=== PATIENT | male | born 1990 | race Caucasian/White ===

== ENCOUNTER 2016-09-08 15:02 | Inpatient (IN) | payer OTHER ==
[~2016-09-08] VITALS: Ht 195.6 cm; Wt 86.2 kg
--- NOTE | 2016-09-08 15:52 | ED Lower Extremity ---
General Chief Complaint: Lower Extremity Stated Complaint: LEFT SIDE HIP INJURY NO FEELING Nursing Triage Note: States that approx 1400 was at work at [employer] and slipped and fell on left hip. Denies strinking any other body part- no LOC. States that he has numbness to left thigh from hip to foot. Able to move foot and toes but not ankle. C/O pain in lower hip /thigh area, no bruising, swelling or deformity noted. Was brought back to room in wheelchair and times 3 assist to transfer to bed Nursing Sepsis Screen: No Definite Risk Source: patient Exam Limitations: no limitations History of Present Illness Time seen by provider: 15:50 Initial Comments To ER with left lateral hip pain after a slip and fall at work at [employer] about one hour prior to arrival. States that he landed on the left hip. No other injury. He states he is unable to bear weight on his left leg. He has numbness and tingling down the left leg. Allergies and Home Medications Allergies Coded Allergies: No Known Drug Allergies (Unverified , 09/08/16) Constitutional: see HPI EENTM: see HPI Respiratory: no symptoms reported Cardiovascular: no symptoms reported Genitourinary: no symptoms reported Musculoskeletal: see HPI Skin: no symptoms reported Past Ouwqkea-Zpkbqx-Wafzqf Hx Patient Social History Alcohol Use: Denies Use Recreational Drug Use: No Smoking Status: Never a Smoker Recent Foreign Travel: No Contact w/Someone Who Travel: No Recent Infectious Disease Expo: No Recent Hopitalizations: No Immunizations Up To Date Tetanus Booster (TDap): More than 5yrs PED Vaccines UTD: Yes Seasonal Allergies Seasonal Allergies: No Surgeries Surgeries: Ear Surgery Blood Transfusions Adverse Reaction to a Blood Tr: No Physical Exam Vital Signs Vital Sign - Last 12Hours 09/08/16 15:25 Temp 97.1 Pulse 71 Resp 18 B/P (MAP) 118/64 Pulse Ox 99 Capillary Refill : Less Than 3 Seconds General Appearance: WD/WN, no apparent distress HEENT: PERRL/EOMI, normal ENT inspection Neck: non-tender, full range of motion Respiratory: normal breath sounds, no respiratory distress, no accessory muscle use Gastrointestinal: normal bowel sounds, non tender, soft Hips: bilateral hip non-tender, bilateral hip normal inspection, bilateral hip normal range of motion Legs: right leg pain, right leg other (there is no bruising erythema abrasion) Knees: bilateral knee non-tender, bilateral knee normal inspection, bilateral knee normal range of motion Ankles: bilateral ankle non-tender, bilateral ankle normal inspection, bilateral ankle normal range of motion Feet: bilateral foot non-tender, bilateral foot normal inspection, bilateral foot normal range of motion, left foot other (strong dorsalis pedis pulse bilateral feet) Neurologic/Psychiatric: alert, normal mood/affect, oriented x 3 Skin: normal color, warm/dry Progress/Results/Core Measures Results/Orders Lab Results Laboratory Tests Test 09/08/16 16:04 Range/Units White Blood Count 11.4 H 4.3-11.0 10^3/uL Red Blood Count 4.82 4.35-5.85 10^6/uL Hemoglobin 14.9 13.3-17.7 G/DL Hematocrit 44 40-54 % Mean Corpuscular Volume 92 80-99 FL Mean Corpuscular Hemoglobin 31 25-34 PG Mean Corpuscular Hemoglobin Concent 34 32-36 G/DL Red Cell Distribution Width 13.5 10.0-14.5 % Platelet Count 159 130-400 10^3/uL Mean Platelet Volume 10.8 H 7.4-10.4 FL Neutrophils (%) (Auto) 86 H 42-75 % Lymphocytes (%) (Auto) 7 L 12-44 % Monocytes (%) (Auto) 7 0-12 % Eosinophils (%) (Auto) 0 0-10 % Basophils (%) (Auto) 0 0-10 % Neutrophils # (Auto) 9.8 H 1.8-7.8 X 10^3 Lymphocytes # (Auto) 0.8 L 1.0-4.0 X 10^3 Monocytes # (Auto) 0.8 0.0-1.0 X 10^3 Eosinophils # (Auto) 0.0 0.0-0.3 10^3/uL Basophils # (Auto) 0.0 0.0-0.1 10^3/uL Neutrophils % (Manual) 81 % Lymphocytes % (Manual) 7 % Monocytes % (Manual) 5 % Eosinophils % (Manual) 0 % Basophils % (Manual) 0 % Metamyelocytes % 1 % Band Neutrophils 6 % Blood Morphology Comment NORMAL Sodium Level 137 135-145 MMOL/L Potassium Level 4.4 3.6-5.0 MMOL/L Chloride Level 104 98-107 MMOL/L Carbon Dioxide Level 22 21-32 MMOL/L Anion Gap 11 5-14 MMOL/L Blood Urea Nitrogen 25 H 7-18 MG/DL Creatinine 1.45 H 0.60-1.30 MG/DL Estimat Glomerular Filtration Rate 59 BUN/Creatinine Ratio 17 Glucose Level 105 70-105 MG/DL Calcium Level 9.8 8.5-10.1 MG/DL Total Bilirubin 1.1 H 0.1-1.0 MG/DL Aspartate Amino Transf (AST/SGOT) 47 H 5-34 U/L Alanine Aminotransferase (ALT/SGPT) 107 H 0-55 U/L Alkaline Phosphatase 42 40-136 U/L Total Protein 7.4 6.4-8.2 G/DL Albumin 4.7 H 3.2-4.5 G/DL My Orders Orders - JASE LEWIS APRN Hip, Left, 2 Views (09/08/16 15:40) Cbc With Automated Diff (09/08/16 16:01) Comprehensive Metabolic Panel (09/08/16 16:01) Chest 1 View, Ap/Pa Only (09/08/16 16:01) Pelvis (09/08/16 16:01) Fentanyl Injection (Sublimaze Injection (09/08/16 16:15) Manual Differential (09/08/16 16:04) Vitamin D 25-Hydroxy (09/08/16 16:18) Thyroid Stimulating Hormone (09/08/16 16:19) Free T4 (Free Thyroxine) (09/08/16 16:19) Hepatitis Panel Acute (09/08/16 16:37) Ns Iv 1000 Ml (Sodium Chloride 0.9%) (09/08/16 16:45) Ua Culture If Indicated (09/08/16 16:38) Drug Screen Stat (Urine) (09/08/16 16:38) Medications Given in ED Current Medications Medications Dose Ordered Sig/Nayely Route Start Time Stop Time Status Last Admin Dose Admin Fentanyl Citrate 75 mcg ONCE ONCE IVP 09/08/16 16:15 09/08/16 16:16 DC 09/08/16 16:12 75 MCG Vital Signs/I&O Vital Sign - Last 12Hours 09/08/16 15:25 Temp 97.1 Pulse 71 Resp 18 B/P (MAP) 118/64 Pulse Ox 99 Blood Pressure Mean: 82 Departure Communication Time/Spoke to Admitting Phy: 16:39 Communication Discussed the case with Dr. Tenorio. He plans to take this patient to surgery tonight at 630 p.m. Time/Spoke to Consulting Physi: 16:39 Communication/Consulting Notify Dr. Jarquin of consult for [facility] patient. Progress Notes 1646-I discussed the lab values with the patient. He states that he's not had any blood drawn for about 5 years. That's when he was residing in [place]. At that time he was told he did have some slightly elevated liver enzymes. At that time, he was mid male to female transgender treatment with estrogen and spironolactone. He only took those medications for 3 months and then quit and has not had any for 5 years. Impression Impression: Primary Impression: Hip fracture Additional Impressions: Elevated liver enzymes Acute renal insufficiency Disposition: ADMITTED INPATIENT Condition: Stable Decision to Admit Reason: Admit from ER (General) Decision to Admit/Date: Sep 08, 2016 Time/Decision to Admit Time: 16:48 Departure-Patient Inst. Referrals: ODESSA ASHLEY DO (PCP) Primary Care Physician DANISH SHAW (Family) Primary Care Physician JASE LEWIS APRN Sep 08, 2016 15:52
--- NOTE | 2016-09-08 16:11 | Diagnostic Imaging Report ---
Indication: Injury from a fall, left hip fracture Portable chest 4:12 PM Heart and mediastinum are normal. Lungs are clear. There are no effusions or pneumothoraces. Impression: Negative chest Dictated by: Dictated on workstation # [id number]
--- NOTE | 2016-09-08 16:13 | Diagnostic Imaging Report ---
AP and cross-table lateral views of the left hip. INDICATION: Fall. FINDINGS: There is a superiorly displaced intertrochanteric fracture with varus angulation. No subluxation or dislocation at the joint. No radiopaque foreign body. IMPRESSION: Superiorly displaced and angulated left intertrochanteric fracture. Dictated by: Dictated on workstation # [id number]
[2016-09-08 16:15] LABS: BASOPHILS % (AUTO) 0 % (0-10); EOSINOPHILS % (AUTO) 0 % (0-10); LYMPHOCYTES # (AUTO) 0.8 X 10^3 (1.0-4.0); LYMPHOCYTES % (AUTO) 7 % (12-44); MEAN CORPUSCULAR HEMOGLOBIN 31 PG (25-34); MEAN CORPUSCULAR HGB CONC 34 G/DL (32-36); MEAN CORPUSCULAR VOLUME 92 FL (80-99); MEAN PLATELET VOLUME 10.8 FL (7.4-10.4); MONOCYTES # (AUTO) 0.8 X 10^3 (0.0-1.0); MONOCYTES % (AUTO) 7 % (0-12); NEUTROPHILS # (AUTO) 9.8 X 10^3 (1.8-7.8); NEUTROPHILS % (AUTO) 86 % (42-75); PLATELET COUNT 159 10^3/uL (130-400); RED BLOOD COUNT 4.82 10^6/uL (4.35-5.85); RED CELL DISTRIBUTION WIDTH 13.5 % (10.0-14.5); WHITE BLOOD COUNT 11.4 10^3/uL (4.3-11.0)
[2016-09-08] MEDS ORDERED: fentaNYL INJECTION 100 MCG/2 ML AMP IVP ONE (16:15)
--- NOTE | 2016-09-08 16:15 | Diagnostic Imaging Report ---
AP view of the pelvis. INDICATION: Fall. FINDINGS: There is a left intertrochanteric fracture with superior displacement and varus angulation seen. No subluxation or dislocation. The right hip appears unremarkable. SI joints appear symmetric. IMPRESSION: Displaced and angulated left intertrochanteric fracture. Dictated by: Dictated on workstation # [id number]
[2016-09-08 16:31] LABS: BAND NEUTROPHILS 6 %; BASOPHILS % (MANUAL) 0 %; EOSINOPHILS % (MANUAL) 0 %; LYMPHOCYTES % (MANUAL) 7 %; METAMYELOCYTES % 1 %; NEUTROPHILS % (MANUAL) 81 %
[2016-09-08 16:32] LABS: ALBUMIN 4.7 G/DL (3.2-4.5); BILIRUBIN,TOTAL 1.1 MG/DL (0.1-1.0); CALCIUM 9.8 MG/DL (8.5-10.1); CREATININE SERUM 1.45 MG/DL (0.60-1.30); POTASSIUM 4.4 MMOL/L (3.6-5.0); TOTAL PROTEIN 7.4 G/DL (6.4-8.2)
[2016-09-08] MEDS ORDERED: NS IV 1000 ML 1,000 ML IV SCH ×2 (16:45→17:45)
[2016-09-08 16:56] LABS: THYROID STIMULATING HORMONE 1.33 UIU/ML (0.35-4.94)
[2016-09-08] MEDS ORDERED: morphine INJ 10 MG/ML 1ML (SYR OR VIAL) IVP ONE (17:00)
[2016-09-08 17:27] LABS: KETONES,URINE 3+ (NEGATIVE); LEUKOCYTE ESTERASE ,URINE 1+ (NEGATIVE); NITRITE,URINE NEGATIVE (NEGATIVE); PH,URINE 5 (5-9); PROTEIN,URINE 2+ (NEGATIVE); UROBILINOGEN,URINE 4 MG/DL (NORMAL)
[2016-09-08 17:30] VITALS: BP 117/65
[2016-09-08 17:38] LABS: BILIRUBIN,URINE NEGATIVE (NEGATIVE); SQUAMOUS EPITHELIAL CELL,UR RARE /HPF; WBC,URINE 0-2 /HPF
[2016-09-08] MEDS ORDERED: CATHETER FLUSH 10 ML SYR IV PRN (17:45)
[2016-09-08] MEDS ORDERED: D5 NS 1000 ML IV SOLUTION 1,000 ML IV SCH (17:59)
[2016-09-08] MEDS: morphine INJ 4 MG/ML 1 ML (VIAL/SYRINGE) IV PRN ×2 (18:11→23:30)
[2016-09-08] MEDS ORDERED: ONDANSETRON 4 MG/2 ML (SDV) Z0FRAN ONE (18:17)
[2016-09-08] MEDS ORDERED: DEXAMETHASONE PF 10 MG/ML (DECADRON) VIAL ONE (18:17)
[2016-09-08] MEDS ORDERED: fentaNYL INJECTION 250 MCG/5 ML AMP ONE (18:17)
[2016-09-08] MEDS ORDERED: proPOfol 200 MG/20 ML (DIPRIVAN) VIAL IV ONE (18:18)
[2016-09-08] MEDS ORDERED: LIDOCAINE PF 2% 5 ML (XYLOCAINE) VIAL ONE (18:18)
[2016-09-08] MEDS ORDERED: SUCCINYLCHOLINE INJ 100 MG/5 ML SYR ONE (18:18)
[2016-09-08] MEDS ORDERED: MIDAZOLAM 2 MG/2 ML (VERSED) VIAL ONE (18:18)
[2016-09-08] MEDS ORDERED: LACTATED RINGERS 1,000 ML IV ONE (18:18)
[2016-09-08] MEDS ORDERED: SEVOFLURANE (ULTANE) 15 ML INHAL SOLN ONE ×4 (18:18→20:10)
[2016-09-08] MEDS ORDERED: BUP/EPI 0.25% 1:200,000 (MARCAINE) 30 ML VIAL ONE ×2 (18:46→19:13)
[2016-09-08] MEDS ORDERED: ceFAZolin 1,000 MG (ANCEF) VIAL ONE (19:06)
[2016-09-08] MEDS ORDERED: morphine INJ 10 MG/ML 1ML (SYR OR VIAL) ONE (19:22)
[2016-09-08] MEDS ORDERED: TRANEXAMIC ACID 100 MG/ML 10 ML INJECTION IV ONE (19:37)
[2016-09-08] MEDS: LACTATED RINGERS 1,000 ML IV SCH ×2 (19:40→20:08)
[2016-09-08] MEDS ORDERED: ceFAZolin INJECTION 1 MG in NS (IVPB) 50 ML IV SCH (20:30)
[2016-09-08] MEDS ORDERED: BISACODYL 5 MG (DULCOLAX) TABLET PO PRN (20:30)
[2016-09-08] MEDS ORDERED: ONDANSETRON 4 MG/2 ML (SDV) Z0FRAN IVP PRN (20:45)
[2016-09-08] MEDS ORDERED: MEPERIDINE (DEMEROL) INJ 50 MG/ML IVP PRN (20:45)
[2016-09-08] MEDS ORDERED: morphine INJ 10 MG/ML 1ML (SYR OR VIAL) IVP PRN (20:45)
[2016-09-08] MEDS ORDERED: fentaNYL INJECTION 100 MCG/2 ML AMP IVP PRN (20:45)
[2016-09-08] MEDS ORDERED: morphine INJ 4 MG/ML 1 ML (VIAL/SYRINGE) IV PRN (20:50)
--- NOTE | 2016-09-08 21:34 | Diagnostic Imaging Report ---
INDICATION: TFN of the left hip. FINDINGS: Intraoperative fluoroscopy was provided for open reduction internal fixation of the intratrochanteric fracture of the left hip. Fracture fragments are well aligned. A total of 5 minutes and 12 seconds was utilized. IMPRESSION: Intraoperative fluoroscopy was provided for open reduction internal fixation of the intratrochanteric fracture with excellent alignment. Dictated by: Dictated on workstation # [id number]
[2016-09-08] MEDS ORDERED: ceFAZolin 1,000 MG (ANCEF) VIAL IV ONE (21:45)
[2016-09-08 21:52] VITALS: BP 125/79
--- NOTE | 2016-09-08 22:00 | Diagnostic Imaging Report ---
INDICATION: Postoperative hip. FINDINGS: AP view of the pelvis demonstrates open reduction internal fixation of the displaced intertrochanteric fracture with anatomic alignment. No abnormal foreign bodies are present. IMPRESSION: Open reduction internal fixation of the left hip with no complications. Dictated by: Dictated on workstation # [id number]
[2016-09-08] MEDS: D5 NS 1000 ML IV SOLUTION 1,000 ML IV SCH (22:28)
[2016-09-08] MEDS: ceFAZolin INJECTION 1,000 MG in NS (IVPB) 50 ML IV SCH (22:35)
[2016-09-08] MEDS: SENNOSIDES 8.6 MG (SENOKOT) TAB PO SCH (22:38)
[2016-09-08] MEDS ORDERED: DIAZEPAM 5 MG (VALIUM) TABLET PO PRN (23:30)
[2016-09-09] VITALS: BP 122/74
[2016-09-09] MEDS: morphine INJ 4 MG/ML 1 ML (VIAL/SYRINGE) IV PRN ×3 (01:56→08:26)
[2016-09-09 04:00] VITALS: BP 112/62
[2016-09-09] MEDS: ceFAZolin INJECTION 1,000 MG in NS (IVPB) 50 ML IV SCH (05:08)
[2016-09-09] MEDS: D5 NS 1000 ML IV SOLUTION 1,000 ML IV SCH (05:08)
[2016-09-09 05:16] LABS: BASOPHILS % (AUTO) 0 % (0-10); EOSINOPHILS % (AUTO) 0 % (0-10); LYMPHOCYTES # (AUTO) 0.9 X 10^3 (1.0-4.0); LYMPHOCYTES % (AUTO) 9 % (12-44); MEAN CORPUSCULAR HEMOGLOBIN 31 PG (25-34); MEAN CORPUSCULAR HGB CONC 34 G/DL (32-36); MEAN CORPUSCULAR VOLUME 92 FL (80-99); MEAN PLATELET VOLUME 10.6 FL (7.4-10.4); MONOCYTES # (AUTO) 0.9 X 10^3 (0.0-1.0); MONOCYTES % (AUTO) 10 % (0-12); NEUTROPHILS # (AUTO) 7.5 X 10^3 (1.8-7.8); NEUTROPHILS % (AUTO) 81 % (42-75); PLATELET COUNT 133 10^3/uL (130-400); RED BLOOD COUNT 4.16 10^6/uL (4.35-5.85); RED CELL DISTRIBUTION WIDTH 13.4 % (10.0-14.5); WHITE BLOOD COUNT 9.3 10^3/uL (4.3-11.0)
[2016-09-09 05:34] LABS: ALANINE AMINOTRANSFERASE 79 U/L (0-55); ALBUMIN 3.8 G/DL (3.2-4.5); ANION GAP 8 MMOL/L (5-14); ASPARTATE AMINO TRANSFERASE 36 U/L (5-34); BILIRUBIN,TOTAL 1.1 MG/DL (0.1-1.0); BLOOD UREA NITROGEN 15 MG/DL (7-18); BUN/CREATININE RATIO 15; CALCIUM 8.8 MG/DL (8.5-10.1); CARBON DIOXIDE 25 MMOL/L (21-32); CHLORIDE 104 MMOL/L (98-107); CREATININE SERUM 0.97 MG/DL (0.60-1.30); GFR ESTIMATED > 60; GLUCOSE 151 MG/DL (70-105); POTASSIUM 4.5 MMOL/L (3.6-5.0); SODIUM 137 MMOL/L (135-145); TOTAL PROTEIN 6.3 G/DL (6.4-8.2)
[2016-09-09 07:57] VITALS: BP 113/57
[2016-09-09] MEDS: oxyCODONE/APAP 5/325MG (PERCOCET 5) TABLET PO PRN ×3 (08:26→20:13)
[2016-09-09] MEDS: SENNOSIDES 8.6 MG (SENOKOT) TAB PO SCH ×2 (08:26→20:13)
[2016-09-09] MEDS ORDERED: SERT25TA PO (08:37)
[2016-09-09] MEDS ORDERED: ACET-2267 PO (08:38)
[2016-09-09] MEDS ORDERED: NAPR220T66 PO (08:38)
--- NOTE | 2016-09-09 10:23 | Physical Therapy Evaluation ---
PT Evaluation-General Medical Diagnosis Admission Date Sep 08, 2016 at 16:22 Medical Diagnosis: left hip fracture Onset Date: Sep 08, 2016 Therapy Diagnosis Therapy Diagnosis: debility Height/Weight Height (Feet): 6 Height (Inches): 5.00 Weight (Pounds): 190 Precautions Precautions/Isolations: Fall Prevention, Standard Precautions Weight Bear Status Weight Bearing Restriction: Weight Bearing/Tolerated Location Restriction: L LE Referral Physician: Jona Reason for Referral: Evaluation/Treatment Medical History Additional Medical History unremarkable Current History slipped and fell at work, [employer], resulting in left hip fracture Reviewed History: Yes Social History Home: [facility] Current Living Status: Other Family Entry Into Home: Stairs Without Railing PT Steps Inside Home: 4 Prior/Core FIM Prior Level of Function Functional [place] Measure 0=Not Assessed/NA 4=Minimal Assistance 1=Total Assistance 5=Supervision or Setup 2=Maximal Assistance 6=Modified [place] 3=Moderate Assistance 7=Complete [place] Bed Mobility: 7 Transfers (B,C,W/C) (FIM): 7 Gait: 7 Locomotion: 7 works PT Evaluation-Current Subjective Patient agrees to PT. Pain Numeric Pain Scale: 8 Location: Left Location Body Site: Hip Pain Description: Acute Objective Patient Orientation: Normal For Age Problem Solving: Good ROM/Strength ROM Lower Extremities bilateral LE WFL Strenght Lower Extremities bilateral LE WFL; left LE limited with pain, however, functional Integumentary/Posture Integumentary refer to nursing notes Bowel Incontinence: No Bladder Incontinence: No Posture WNL Neuromuscular (Tone, Coordination, Reflexes) grossly intact Sensory Vision: Functional Hearing: Functional Sensation Right Lower Extremit: Intact Sensation Left Lower Extremity: Intact Transfers Functional [place] Measure 0=Not Assessed/NA 4=Minimal Assistance 1=Total Assistance 5=Supervision or Setup 2=Maximal Assistance 6=Modified [place] 3=Moderate Assistance 7=Complete [place] Transfers (B, C, W/C) (FIM): 4 Scootin Rollin Supine to/from Sit: 4 Sit to/from Stand: 4 CGA with use of gait belt for safety Gait Mode of Locomotion: Walk Anticipated Mode of Locomotion: Walk Gait (FIM): 1 Distance (FIM): 1=up to 49 ft Distance: 45' x 2 Gait Level of Assist: 4 Gait Persons Needed: 1 Gait Assistive Device: FWW Comments/Gait Description step to gait sequence with FWW; Balance Sitting Static: Normal Sitting Dynamic: Normal Standing Static: Normal Standing Dynamic: Normal Assessment/Needs 26 y.o. male, will benefit from skilled PT to address functional strength and mobility to improve current LOF and to safely return to home with mother at maximum LOF. Rehab Potential: Good PT Intermediate Goals Intermediate Goals PT Labor Trainer Goals Time Frame: Sep 13, 2016 Transfers (B,C,W/C) (FIM): 6 Gait (FIM): 6 Gait distance (FIM): 3=150 ft Gait Level of Assist: 6 Gait Assistive Device: FWW, Crutches Stairs (FIM): 5 # of Steps: 4 Stairs Level Of Assist: 5 PT Plan Problem List Problem List: Activity Tolerance Treatment/Plan Treatment Plan: Continue Plan of Care Treatment Plan: Bed Mobility, Education, Functional Activity Shanelle, Functional Strength, Gait, Safety, Therapeutic Exercise, Transfers Treatment Duration: Sep 13, 2016 # of days/week 4 Visits Per Week: 8 Pt/Family Agrees w/Plan: Yes Safety Risks/Education Patient Education: Gait Training, Transfer Techniques, Steps, Safety Issues Teaching Recipient: Patient, Family Teaching Methods: Demonstration, Discussion Response to Teaching: Verbalize Understanding, Return Demonstration Discharge Recommendations Therapy D/C Recommendations: Home w/ Family Support Time/GCodes Time In: 925 Time Out: 955 Total Billed Treatment Time: 30 Total Billed Treatment 1 visit EVElisa 15 min GT 15 min KARIE MONTANEZ PT Sep 09, 2016 10:23
--- NOTE | 2016-09-09 11:29 | Consultation-Hospitalist ---
HPI History of Present Illness: HPI/Chief Complaint CC: Medical Management following left hip fracture HPI: This is a 26 yoWM [facility] patient that sustained a fall and suffered a left hip fracture and underwent repair yesterday in an uncomplicated manner. Follow- up WBC 11.4 to 9.3 Creat 1.45 resolved to 0.97and mild elevated FLT remains of 36 and 79. Patient Interview: Pt states that he sees Aidee Mcginnis at [facility] as his PCP for depression He will see her next Monday and sees her month to month Pt is on Zoloft 25 generic Pt states that he was at work at [employer] when this happened and he slipped on water in the work room Pt states that he has only been working for a week at [employer] and then this incident occurred He rates his pain as about a 7 right now Pt's lungs were clear to auscultation bilaterally; physical exam was stable Non-smoker No EtOH He had blood drawn in the ER and I explained that the kidney function has returned back to normal today, he still has some elevated FLT at the moment Pt has been eating Scribed by Arabella Uriostegui under the direct supervision of Dr. To. Source: patient Date Seen 09/09/16 Attending Physician Vince Tenorio MD PCP Cristal Cordon DO Referring Physician Date of Admission Sep 08, 2016 at 16:22 Home Medications & Allergies Home Medications Reviewed patient Home Medication Reconciliation Form Allergies Allergies Coded Allergies No Known Drug Allergies (Unverified09/08/16) Past Vqhyuuy-Tltmmu-Shvpmz Hx Patient Social History Marrital Status: single Employed/Student: employed Alcohol Use: Occasionally Uses Recreational Drug Use: No Smoking Status: Never a Smoker Physical Abuse Screen: No Sexual Abuse: No Recent Foreign Travel: No Contact w/other who traveled: No Recent Hopitalizations: No Recent Infectious Disease Expo: No Immunizations Up To Date Tetanus Booster (TDap): More than 5yrs Seasonal Allergies Seasonal Allergies: No Surgeries HX Surgeries: Yes Surgeries: Ear Surgery Respiratory Hx Respiratory Disorders: No Cardiovascular Hx Cardiovascular Disorders: No Neurological Hx Neurological Disorders: No Genitourinary Hx Genitourinary Disorders: No Gastrointestinal Hx Gastrointestinal Disorders: No Musculoskeletal Hx Musculoskeletal Disorders: No Endocrine Hx Endocrine Disorders: No HEENT HX ENT Disorders: No Cancer Hx Cancer: No Psychosocial Hx Psychiatric Problems: Yes Behavioral Health Disorders: Depression Blood Transfusions Adverse Reaction to a Blood Tr: No Review of Systems Constitutional: see HPI EENTM: no symptoms reported Respiratory: no symptoms reported Cardiovascular: no symptoms reported Gastrointestinal: no symptoms reported Genitourinary: no symptoms reported Musculoskeletal: joint pain Skin: no symptoms reported Psychiatric/Neurological: No Symptoms Reported All Other Systems Reviewed Negative Unless Noted: Yes Physical Exam Physical Exam Vital Signs Vital Sign - Last 12Hours 09/08/16 15:25 Temp 97.1 Pulse 71 Resp 18 B/P (MAP) 118/64 Pulse Ox 99 Capillary Refill : Less Than 3 SecondsLess Than 3 Seconds General Appearance: No Apparent Distress, WD/WN, Chronically ill, Thin Eyes: Bilateral Eye Normal Inspection, Bilateral Eye PERRL HEENT: PERRL/EOMI, Normal ENT Inspection, Pharynx Normal Neck: Full Range of Motion, Normal Inspection, Non Tender, Supple, Carotid Bruit Respiratory: Chest Non Tender, Lungs Clear, Normal Breath Sounds, No Accessory Muscle Use, No Respiratory Distress Cardiovascular: Regular Rate, Rhythm, No Edema, No Gallop, No JVD, No Murmur, Normal Peripheral Pulses Gastrointestinal: Normal Bowel Sounds, No Organomegaly, No Pulsatile Mass, Non Tender, Soft Back: Normal Inspection, No CVA Tenderness, No Vertebral Tenderness Extremity: Normal Capillary Refill, Normal Inspection, Non Tender, No Calf Tenderness, No Pedal Edema, Other (limited ROM Left) Neurologic/Psychiatric: Alert, Oriented x3, No Motor/Sensory Deficits, Normal Mood/Affect Skin: Normal Color, Warm/Dry Lymphatic: No Adenopathy Results Results/Procedures Lab Laboratory Tests 09/08/16 16:04 09/09/16 05:06 Assessment/Plan Admission Diagnosis Assessment: Left acute hip fracture sustained in fall at work POD # 1 uncomplicated Severe depression Chronically elevated liver enzymes of unknown source Assessment and Plan Plan: Check labs in AM Pt is medically stable with elevated chronic elevated LFTs Continue current treatment Follow-up with PCP next Monday as scheduled Clinical Quality Measures DVT/VTE Risk/Contraindication: Risk Factor Score Per Nursin RFS Level Per Nursing on Admit: 4+=Very High ALANIS TO DO Sep 09, 2016 11:29
[2016-09-09] MEDS: IBUPROFEN 600 MG (MOTRIN) TAB PO SCH ×3 (11:35→23:37)
--- NOTE | 2016-09-09 11:47 | Occupational Therapy Eval ---
OT Evaluation-General/PLF Medical Diagnosis Admission Date Sep 08, 2016 at 16:22 Medical Diagnosis: left hip fracture Onset Date: Sep 08, 2016 Therapy Diagnosis Therapy Diagnosis: deecreased self care Height/Weight Height (Feet): 6 Height (Inches): 5.00 Weight (Pounds): 190 Precautions Precautions/Isolations: Fall Prevention, Standard Precautions Safety Interventions: None Weight Bear Status Weight Bearing Restriction: Weight Bearing/Tolerated Location Restriction: L ELBA Referral Physician: Jona Referral Reason: Evaluation/Treatment Medical History Additional Medical History unremarkable Current History Fell at work ([employer]) and landed on L hip. ORIF L hip on 09-08-16. Elevated liver enzymes and acute renal insufficiency Reviewed History: Yes Social History Home: Multilevel Current Living Status: Other Family (mother) Entry Into Home: Stairs Without Railing Steps Inside Home: 4 Other Obstacles: One large step from his room to next level ADL-Prior Level of Function ADL PLOF Comments Pt was independent in managing his own self care prior to accident. 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 Pain not rated. Appearance Alert but drifts to sleep. Cooperative Mental Status/Objective Attachments: IV Current Glasses/Contacts: No Upper Extremity ROM Grossly WFL bilat Upper Extremity Coordination No problems reported Upper Extremity Strength Grossly WFL bilat ADL-Treatment ADL-Current Pt will be discharging to [place] to his mother's house. She was there and provided information on DME that she has at home. Discussed raising bed higher to make transfers easier. Also talked about transfer tub bench instead of shower chair because it does not require him to step into the tub. Discussed bedside commode because it can go over a toilet or be free standing. Discussed modified dressing techniques and equipment that's in a hip kit. Information shared with social science analyst who will coordinate equipment needs with mother. Functional [place] Measure 0=Not Assessed/NA 4=Minimal Assistance 1=Total Assistance 5=Supervision or Setup 2=Maximal Assistance 6=Modified [place] 3=Moderate Assistance 7=Complete IndependenceIRFPAI Quality Coding Scale 6 Independent with activity with or without an assistive device 5 Patient requires set up or clean up by helper. Patient completes activity by themselves 4 Supervision or touching assist (CGA). [place] provide cues , steadying assist 3 The helper provides less than half the effort to complete the activity 2 The helper provides more than half the effort to complete the activity 1 Dependent. The helper does all the effort to complete an activity 7 Patient refused to complete or attempt activity 9 The patient did not perform the activity before the current illness or injury 88 Not attempted due to Medical conditions or safety concerns Pt left up in bed, all needs met. Education OT Patient Education: Modified ADL techniques, Purpose of tx/functional activities, Reviewed precautions, Rehab process, Safety issues, Transfer techniques, Use of adapted equipment Teaching Recipient: Patient, Family Teaching Methods: Discussion Response to Teaching: Verbalize Understanding OT Prison Goals Prison Goals Time Frame: Sep 16, 2016 Bathing(FIM): 5 Upper Body Dressing(FIM): 5 Lower Body Dressing(FIM): 5 Toileting(FIM): 5 Toilet/Commode Transfer(FIM): 5 Shower Transfer(FIM): 5 Additional Goals: 1-Demonstrate ADL Tasks, 2-Verbalize Understanding 1=Demonstrate adherence to instructed precautions during ADL tasks. 2=Patient will verbalize/demonstrate understanding of assistive devices/ modifications for ADL. 3=Patient will improve strength/tolerance for activity to enable patient to perform ADL's. OT Education/Plan Problem List/Assessment Assessment: Dependent Transfers, Impaired Self-Care Skills Pt would benefit from skilled OT to increase his independence in basic self care to allow him to safely return home to live with family and to decrease caregiver burden. Discharge Recommendations Plan/Recommendations: Continue POC Target Placement Plan is to discharge tomorrow to mother's home Treatment Plan/Plan of Care Treatment,Training & Education: Yes Patient would benefit from OT for education, treatment and training to promote independence in ADL's, mobility, safety and/or upper extremity function for ADL' s. Plan of Care: ADL Retraining, Functional Mobility Treatment Duration: Sep 16, 2016 # of days/week 5 Visits Per Week: 5 Agreement: Yes Rehab Potential: Good Time/GCodes Start Time: 11:10 Stop Time: 11:35 Total Time Billed (hr/min): 25 Billed Treatment Time visit, 10 minutes evaluation low intensity, 15 minutes ADL LIVE SAMPSON OT Sep 09, 2016 11:47
--- NOTE | 2016-09-09 12:18 | OPERATIVE REPORT ---
DATE OF SERVICE: 09/08/2016 PREOPERATIVE DIAGNOSIS: Left hip intertrochanteric fracture, displaced, closed, unstable. POSTOPERATIVE DIAGNOSIS: Left hip intertrochanteric fracture, displaced, closed, unstable. PROCEDURE: Open reduction internal fixation of left femur intertrochanteric fracture using Synthes TFN intramedullary nail with a helical blade plate. SURGEON: Crispin Tenorio MD ANESTHESIA: General. COMPLICATIONS: None. BLOOD LOSS: About 200 mL. PERIOPERATIVE MEDICATIONS: One gram of Ancef preoperatively. One gram of tranexamic acid intraoperatively. Approximately 50 mL of 0.5% Marcaine with epinephrine given before the case and at the end of the case. FINDINGS: The fracture actually reduced pretty nicely and easily. Final anatomical structure looked good. I did place a distal locking screw due to the young age of the patient, the softness of his bone that would allow fracture, plus the relatively small footprint of the intertrochanteric fracture on the femur. NARRATIVE SUMMARY: The patient was taken to the operating room after standard nursing and anesthesia, preoperative identification, evaluation and counseling. The patient was carefully moved from his bed which came down from his room to the operating room fracture table with me placing close attention to the left hip to make sure no extra displacement happened. We were able to protect that hip very well. The patient was brought down to the post and the right lower extremity was then placed in the lithotomy position and the right lower extremity was co-banded into the foot of the fracture table. C-arm visualization to make sure everything was lined up nicely. Appropriate amount of adduction and traction was used to get the reduction of the intertrochanteric fracture within a couple of mms. AP and lateral alignment also was looked at and in fact, there was apex posterior angulation due to the weight of the leg and we countered this before the final alignment using a crutch to push up on the upper thigh. Standard longitudinal incision was made above the greater trochanteric with soft tissue dissection accomplished down through the iliotibial band, where the superior trochanter was palpated. Guidewire was placed down. The position was not ideal on the first attempt and so we moved that more anteriorly and got a better alignment, especially when checking the guidewire with the AP and lateral x-rays. This was followed by a short trim reamer and followed by a large reamer due to the nail not being easy to impact past about 50% of the length. I reamed it 1.5 mm over to 11.5, although there was no chatter during any of this reaming. The IM nail was placed with minimal impacting used and alignment and placement looked good on AP and lateral x-rays. Wire was then placed into the head after getting a better reduction by placing a crutch underneath the hip to reduce the effect posterior angulation at the neck. I placed a 100 mm helical blade and pressed it down in the standard technique. I then put a screw distally to reduce rotation and this was placed in the distal end of the dynamic slot. Patient's wounds were then irrigated out and closed in 2 layers with the proximal bigger wound which included the tensor fascia latae with a deep cutaneous stitch, and single layer with additional suri in the remainder of the wounds. The patient was given a simple dressing and then awakened and returned to the recovery room in stable condition. Job ID: [id number] DocumentID: [id number] Dictated Date: 09/09/2016 10:53:55 Fitting Room Inspector Date: 09/09/2016 12:18:30 Dictated By: CRISPIN TENORIO MD MTDD
[2016-09-09 12:43] VITALS: BP 139/74
--- NOTE | 2016-09-09 14:34 | Progress Note-Standard ---
Standard Progress Note Progress Notes/Assess & Plan Date Seen by Provider: Sep 09, 2016 Time Seen by Provider: 09:12 Progress/Assessment & Plan Subjective:The patient said he was much more comfortable than yesterday.Nursing stated he had IV medication at 8 AM. Objective:With moderate assistance from myself and the wound care nurse, the patient was able to get himself Into a dangle position and then stand up with the walker. He then took Three Baby steps forward and three baby steps backwards with Weight-bearing as tolerated. Is left thigh dressings we're all clean and dry. Labs:Hemoglobin Mid 13's. It was mid-14's yesterday. Impression: excellent [id number] hour Postoperative. Plan:Physical therapy is going to work with him Twice today.If he can master stairs then he may want to go home this afternoon. The nurse can call me and we will work on discharge orders. If not today, I believe he should be able to go home tomorrow. He will follow up with [facility] In about 10 days For staple removal. Final Diagnosis Left hip Intertrochanteric fracture, Status post open reduction internal fixation with a Synthes TFN screw CRISPIN CRAWFORD MD Sep 09, 2016 2:34 pm
--- NOTE | 2016-09-09 14:51 | Physical Therapy Daily Note ---
PT Daily Note-Current Subjective Patient agrees to PT. He states he is feeling better. Pain Numeric Pain Scale: 5-Moderate Pain Location: Left Location Body Site: Hip Pain Description: Acute Mental Status Patient Orientation: Normal For Age Transfers Functional [place] Measure 0=Not Assessed/NA 4=Minimal Assistance 1=Total Assistance 5=Supervision or Setup 2=Maximal Assistance 6=Modified [place] 3=Moderate Assistance 7=Complete IndependenceIRFPAI Quality Coding Scale 6 Independent with activity with or without an assistive device 5 Patient requires set up or clean up by helper. Patient completes activity by themselves 4 Supervision or touching assist (CGA). [place] provide cues , steadying assist 3 The helper provides less than half the effort to complete the activity 2 The helper provides more than half the effort to complete the activity 1 Dependent. The helper does all the effort to complete an activity 7 Patient refused to complete or attempt activity 9 The patient did not perform the activity before the current illness or injury 88 Not attempted due to Medical conditions or safety concerns Transfers (B, C, W/C) (FIM): 5 Scootin Rollin Supine to/from Sit: 5 Sit to/from Stand: 5 Weight Bearing Weight Bearing Restriction: Weight Bearing/Tolerated Location Restriction: L LE Gait Training Gait (FIM): 5 Distance (FIM): 3=150 ft Distance: 150' Gait Level of Assist: 5 Gait Persons Needed: 1 Gait Assistive Device: Crutches Stair Training Stair Training: Handrails/: No handrail Stairs (FIM): 5 #of Steps: 4 Stairs: Pattern: Step to Level of Assist: 5 with crutches and skilled verbal instruction for step training Assessment Patient much improved with mobility and will dismiss to home tomorrow. PT Cigar Roller Goals Senior Care Goals PT Senior Care Goals Time Frame: Sep 13, 2016 Transfers (B,C,W/C) (FIM): 6 Gait (FIM): 6 Gait distance (FIM): 3=150 ft Gait Level of Assist: 6 Gait Assistive Device: FWW, Crutches Stairs (FIM): 5 # of Steps: 4 Stairs Level Of Assist: 5 PT Plan Treatment/Plan Treatment Plan: Continue Plan of Care Treatment Plan: Bed Mobility, Education, Functional Activity Shanelle, Functional Strength, Gait, Safety, Therapeutic Exercise, Transfers Treatment Duration: Sep 13, 2016 Visits Per Week: 8 Discharge Recommendations Therapy D/C Recommendations: Home w/ Family Support Time/GCodes Time In: 1250 Time Out: 1320 Total Billed Treatment Time: 30 Total Billed Treatment 1 visit GT 15 min FA 15 min KARIE MONTANEZ PT Sep 09, 2016 14:51
--- NOTE | 2016-09-09 16:00 | Anesthesia-General Post-Op ---
General Patient Condition Mental Status/LOC: Same as Preop Cardiovascular: Satisfactory Nausea/Vomiting: Absent Respiratory: Satisfactory Pain: Controlled Complications: Absent Post Op Complications Complications None Follow Up Care/Instructions Patient Instructions None needed. Anesthesia/Patient Condition Patient Condition Patient is doing well, no complaints, stable vital signs, no apparent adverse anesthesia problems. No complications reported per nursing. ELODIA DUDLEY CRNA Sep 09, 2016 16:00
[2016-09-09 16:18] VITALS: BP 102/56
[2016-09-09 19:32] VITALS: BP 128/74
[2016-09-09] MEDS ORDERED: SERTRALINE 50 MG (ZOLOFT) TABLET PO SCH (21:00)
[2016-09-10] VITALS: BP 122/61
[2016-09-10] MEDS: IBUPROFEN 600 MG (MOTRIN) TAB PO SCH ×2 (05:35→13:10)
[2016-09-10 08:00] VITALS: BP 125/62
[2016-09-10] MEDS: SENNOSIDES 8.6 MG (SENOKOT) TAB PO SCH (08:19)
--- NOTE | 2016-09-10 10:27 | Physical Therapy Daily Note ---
PT Daily Note-Current Subjective Pt reports movement is mainly limited by pain, 6/10. Pain Numeric Pain Scale: 6 Location: Left Location Body Site: Hip Pain Description: Sharp Mental Status Patient Orientation: Normal For Age Transfers Functional [place] Measure 0=Not Assessed/NA 4=Minimal Assistance 1=Total Assistance 5=Supervision or Setup 2=Maximal Assistance 6=Modified [place] 3=Moderate Assistance 7=Complete IndependenceIRFPAI Quality Coding Scale 6 Independent with activity with or without an assistive device 5 Patient requires set up or clean up by helper. Patient completes activity by themselves 4 Supervision or touching assist (CGA). [place] provide cues , steadying assist 3 The helper provides less than half the effort to complete the activity 2 The helper provides more than half the effort to complete the activity 1 Dependent. The helper does all the effort to complete an activity 7 Patient refused to complete or attempt activity 9 The patient did not perform the activity before the current illness or injury 88 Not attempted due to Medical conditions or safety concerns Patient supine to sit with supervision and verbal cuing to use the right LE to assist the left. Sit to stand with supervision and instruction on how to use crutches for assist to push up from his seat. Gait Training Ambulated 125 feet with axillary crutches and SBA. Partial wt bearing on the left LE. Pt was instructed on sequence, safety, and car transfers. Exercises Supine Ex: Ankle pumps, Quad Set, Heel Slides, Straight leg raise Supine Reps: 10 Assessment Current Status: Good Progress Pt has weakness in the (L) LE due to pain and surgical procedure. He will benefit from progressive exercise to regain strength and ROM. He is at a sufficient level of function that he could return home with minor assistance for ADLs. He would benefit from transition of home PT to outpatient PT. PT Nursing Home Goals Nursing Home Goals PT Press Clippings Cutter And Paster Goals Time Frame: Sep 13, 2016 Transfers (B,C,W/C) (FIM): 6 Gait (FIM): 6 Gait distance (FIM): 3=150 ft Gait Level of Assist: 6 Gait Assistive Device: FWW, Crutches Stairs (FIM): 5 # of Steps: 4 Stairs Level Of Assist: 5 PT Plan Problem List Problem List: Activity Tolerance Treatment/Plan Treatment Plan: Discontinue PT Treatment Plan: Bed Mobility, Education, Functional Activity Shanelle, Functional Strength, Gait, Safety, Therapeutic Exercise, Transfers Treatment Duration: Sep 13, 2016 Visits Per Week: 8 Safety Risks/Education Patient Education: Gait Training Teaching Recipient: Patient Teaching Methods: Demonstration, Discussion Response to Teaching: Verbalize Understanding Discharge Recommendations Therapy D/C Recommendations: Home w/ Family Support Equpiment Recommendations-D/C: Crutches Target Placement DC to home Time/GCodes Time In: 0930 Time Out: 0950 Total Billed Treatment Time: 20 Total Billed Treatment visit, gait 15 min, ex 5 min ABEL RUEDA PT Sep 10, 2016 10:27
[2016-09-10] MEDS ORDERED: CHOL200059 PO (11:32)
[2016-09-10] MEDS ORDERED: TRAM50TA2 PO (11:32)
[2016-09-10] MEDS ORDERED: POLY17PO6 PO (11:32)
[2016-09-10] MEDS ORDERED: SENN-140 PO (11:32)
[2016-09-10] MEDS ORDERED: OXYC-471 PO (11:32)
--- NOTE | 2016-09-10 11:36 | Discharge Summary-Hospitalist ---
Diagnosis/Chief Complaint Date of Admission Sep 08, 2016 at 16:22 Date of Discharge Admission Diagnosis Assessment: Left acute hip fracture sustained in fall at work POD # 1 uncomplicated Severe depression Chronically elevated liver enzymes of unknown source Discharge Diagnosis Assessment: Left acute hip fracture sustained in fall at work POD # 2 uncomplicated Severe depression Chronically elevated liver enzymes of unknown source improved and negative viral hepatitis panel Severe Vit D deficiency Plan: Check labs in AM Pt is medically stable with elevated chronic elevated LFTs Continue current treatment Follow-up with PCP next Monday as scheduled Reason Hospital Visit/Course CC: Medical Management following left hip fracture HPI: This is a 26 yoWM [facility] patient that sustained a fall and suffered a left hip fracture and underwent repair yesterday in an uncomplicated manner. Follow- up WBC 11.4 to 9.3 Creat 1.45 resolved to 0.97and mild elevated FLT remains of 36 and 79. Patient Interview: Pt states that he sees Aidee Mcginnis at [facility] as his PCP for depression He will see her next Monday and sees her month to month Pt is on Zoloft 25 generic Pt states that he was at work at [employer] when this happened and he slipped on water in the work room Pt states that he has only been working for a week at [employer] and then this incident occurred He rates his pain as about a 7 right now Pt's lungs were clear to auscultation bilaterally; physical exam was stable Non-smoker No EtOH He had blood drawn in the ER and I explained that the kidney function has returned back to normal today, he still has some elevated FLT at the moment Pt has been eating Scribed by Arabella Uriostegui under the direct supervision of Dr. Jarquin. Note from 09/10/16: Patient doing much better Pain is controlled Vitamin D is very low so I will supplement Trying have a bowel movement and he did receive bowel regimen today but will continue that as an outpatient No fever, vital signs stable, pleasant, chronically pale Regular rate and rhythm, clear to auscultation bilaterally Hospital course: Patient a brief hospital course he suffered a left hip fracture while at work when he slipped on water on the floor sustained a fracture that was repaired in an uncomplicated manner by orthopedic surgery and was placed on the floor and had an uneventful hospital course and overall doing well and was ready for discharge in improved status with close follow-up with [facility]. Discharge Summary Discharge Physical Examination Allergies: Coded Allergies: No Known Drug Allergies (Unverified , 09/08/16) Vitals & I&Os Vital Signs Date Time Temp Pulse Resp B/P (MAP) Pulse Ox O2 Delivery O2 Flow Rate FiO2 09/10/16 08:00 97.2 88 20 125/62 98 Hospital Course Labs (last 24 hrs) Laboratory Tests 09/10/16 05:15: Hemoglobin 11.3L, Hematocrit 35L Microbiology 09/08/16 MRSA Screen - Final, Complete MRSA not isolated Pending Labs Laboratory Tests 09/10/16 05:15: Hemoglobin 11.3, Hematocrit 35 Discharge Home Medications: Active Scripts Active Vitamin D-3 (Cholecalciferol (Vitamin D3)) 2,000 Unit Tablet 2,000 Unit PO DAILY Miralax (Polyethylene Glycol 3350) 17 Gm Powd.pack 17 Gm PO BID Senna (Sennosides) 8.6 Mg Tablet 8.6 Mg PO BID Tramadol HCl 50 Mg Tablet 50 Mg PO Q4H PRN Oxycodone-Acetaminophen 5-325 (Oxycodone HCl/Acetaminophen) 1 Each Tablet 1-2 Tab PO Q4H PRN Reported Tylenol Extra Strength (Acetaminophen) 500 Mg Tablet 1,000 Mg PO Q6H PRN Aleve (Naproxen Sodium) 220 Mg Tablet 440 Mg PO TID PRN Zoloft (Sertraline HCl) 25 Mg Tablet 25 Mg PO HS Instructions to patient/family Please see electonic discharge instructions given to patient. Clinical Quality Measures DVT/VTE Risk/Contraindication: Risk Factor Score Per Nursin RFS Level Per Nursing on Admit: 4+=Very High ALANIS JARQUIN DO Sep 10, 2016 11:36
[2016-09-10] MEDS ORDERED: IBUP-1773 PO (13:04)
--- NOTE | 2016-09-10 13:07 | Progress Note-Standard ---
Standard Progress Note Progress Notes/Assess & Plan Date Seen by Provider: Sep 10, 2016 Time Seen by Provider: 12:44 Progress/Assessment & Plan Subjective:The patient said he was much more comfortable than yesterday and that PT went well Objective: The patient was able to get himself Into a dangle position and then stand up with crutches. He then walked out in the fowler with Weight-bearing as tolerated. Impression: excellent progress 2 days Postoperative. Plan: Physical therapy worked with him Twice today. He masted stairs and is going home today. He will follow up with [facility] In about 10 days For staple removal. I gave his mom's first name and phone number and they will call her to set up appointment. Final Diagnosis Intratroch Fx Status Post ORIF left hip. CRISPIN CRAWFORD MD Sep 10, 2016 1:07 pm
[2016-09-10] MEDS: oxyCODONE/APAP 5/325MG (PERCOCET 5) TABLET PO PRN (13:11)
== END 2016-09-10 14:00 | disposition home or self-care (01) | DRG 482 ==
LOC: EDUNIT# 15:02 → ER 15:06 → 4TH 16:22
PROVIDERS: ADMIT Orthopaedic Surgery; ATTEND Orthopaedic Surgery
PROC: 0QS706Z Reposition Left Upper Femur with Intramedullary Internal Fixation Device, Open Approach (ICD-10-PCS; principal; 2016-09-08 19:27)
DX: S72.142A Displaced intertrochanteric fracture of left femur, initial encounter for closed fracture (principal); N28.9 Disorder of kidney and ureter, unspecified; R74.8 Abnormal levels of other serum enzymes; F32.9 Major depressive disorder, single episode, unspecified; E55.9 Vitamin D deficiency, unspecified; W01.0XXA Fall on same level from slipping, tripping and stumbling without subsequent striking against object, initial encounter; Y92.511 Restaurant or cafe as the place of occurrence of the external cause; Y99.0 Civilian activity done for income or pay
CPT/HCPCS: 36415; 71010; 72170; 73502; 80053; 80074; 80306; 81000; 82306; 84439; 84443; 85007; 85014; 85018; 85025; 85027; 85652; 86850; 86900; 86901; 87081; 93005; 94664

== ENCOUNTER → 2017-02-02 | Outpatient (CLI) | payer OTHER ==
[~2017-02-02] MED LIST: ACET-2267 PO; CHOL200059 PO; IBUP-1773 PO; NAPR220T66 PO; OXYC-471 PO; POLY17PO6 PO; SENN-140 PO; SERT25TA PO; TRAM50TA2 PO
--- NOTE | 2017-02-02 13:05 | Diagnostic Imaging Report ---
EXAMINATION: DEXA scan. INDICATION: Osteopenia. TECHNIQUE: Bone mineral density estimated based on dual energy radiography over the lumbar spine and femoral necks, was performed. FINDINGS: The lumbar spine T-score is -1.6. T score over the right femoral neck is -2.2. The left femoral neck could not be measured due to internal fixation hardware. IMPRESSION: Osteopenia. This is a significantly lower density measurement than would be expected for the patient's age. Dictated by: Dictated on workstation # [id number]
== END ==
LOC: RAD 09:01
PROVIDERS: ATTEND Nurse Practitioner Family
DX: M85.89 Other specified disorders of bone density and structure, multiple sites (principal); Z87.81 Personal history of (healed) traumatic fracture
CPT/HCPCS: 77080